=== PATIENT | female | born 1940 | race Caucasian/White ===

== ENCOUNTER 2019-07-08 06:31 | Outpatient (REF) | payer MEDICARE, MEDICAID, SELFPAY ==
[2019-07-08 09:39] LABS: Estmated Average Glucose 111; Hemoglobin A1C 5.5 % (4.0-6.0)
[2019-07-08 11:35] LABS: Cholesterol 317 mg/dL (0-200); Glucose 91 mg/dL (65-115); HDL Cholesterol 48 mg/dL (60-100); Triglycerides 486 mg/dL (0-150)
[2019-07-08 12:06] LABS: LDL Cholesterol Direct 200 mg/dL (0-100)
== END 2019-07-08 06:32 | disposition home or self-care (01) ==
LOC: LAB 06:31
PROVIDERS: Family Provider Internal Medicine; Visit Provider Dermatology
DX: Z01.89 Encounter for other specified special examinations (principal)
CPT/HCPCS: 80061; 82947; 83036; 83721

== ENCOUNTER 2019-12-13 12:34 | Outpatient (CLI) | payer MEDICARE, MEDICAID, SELFPAY ==
--- NOTE | 2019-12-13 12:50 | MM_ITS ---
WS: [id number] BILATERAL DIGITAL SCREENING MAMMOGRAPHY WITH CAD CLINICAL INFORMATION: SCREEN HISTORY: Screening mammogram. No current complaints. COMPARISON: October 05, 2018 TECHNIQUE: Bilateral CC and MLO views. FINDINGS: Scattered fibroglandular densities bilaterally. No suspicious focal mass, asymmetry, calcifications, or architectural distortion. No evidence of malignancy. Stable calcification left breast. MM/[place] [id number] IMPRESSION: BI-RADS: 2-Benign FOLLOW UP: 1 Year Follow-up Recommend return to annual screening mammography.
== END 2019-12-13 12:35 | disposition home or self-care (01) ==
LOC: RADSHAW 12:45
PROVIDERS: PCP Internal Medicine; Visit Provider Internal Medicine
DX: Z12.31 Encounter for screening mammogram for malignant neoplasm of breast (principal)
CPT/HCPCS: 77067

== ENCOUNTER 2020-09-10 14:04 | Outpatient (CLI) | payer MEDICARE, MEDICAID, SELFPAY ==
--- NOTE | 2020-09-10 14:21 | XR_ITS ---
WS: [id number] SCREENING DEXA SCAN [employer] CLINICAL INFORMATION: POSTMENOPAUSAL COMPARISON: None. FINDINGS: The L1-L4 bone mineral density measures 0.935 g/cm2. This corresponds to a T score score of -2.0 and Z score of 0.3. Left femoral neck bone mineral density measures 0.551 g/cm2. This corresponds to a T score of -3.6 an d Z score of -1.4. Right femoral neck bone mineral density measures 0.464 g/cm2. This corresponds to a T score -4.3of an d Z score of -2.1. Mean femoral neck bone mineral density measures 0.507 g/cm2. This corresponds to a T score of -4.0 an d Z score of -1.7. XR/XR DEXA axial skeleton* [id number] IMPRESSION: Osteoporosis Patient's FRAX calculated 10 year probability for major osteoporotic fracture i s 46.9 % and osteoporotic hip fracture is 26.1%.
== END 2020-09-10 14:05 | disposition home or self-care (01) ==
PROVIDERS: PCP Internal Medicine; Visit Provider Internal Medicine
DX: Z78.0 Asymptomatic menopausal state (principal); M81.0 Age-related osteoporosis without current pathological fracture
CPT/HCPCS: 77080

== ENCOUNTER → 2023-02-21 10:16 | Outpatient (BNVA) | payer MEDICARE, MEDICAID, SELFPAY | PROVIDERS: PCP Internal Medicine | DX: M25.522 Pain in left elbow (principal) | CPT/HCPCS: 73070 ==

== ENCOUNTER 2023-06-24 12:50 | Outpatient (CLI) | payer MEDICARE, MEDICAID, SELFPAY ==
--- NOTE | 2023-06-24 12:57 | XR_ITS ---
WS: [id number] SCREENING DEXA SCAN [employer] [employer] acquired by [employer] CLINICAL INFORMATION: OSTEOPOROSIS COMPARISON: 09/10/2020 FINDINGS: Lumbar scoliosis. The L1-L4 bone mineral density measures 0.931 g/cm2. This corresponds to a T score score of -2.1 and Z score of 0.4. Left femoral neck bone mineral density measures 0.523 g/cm2. This corresponds to a T score of -3.8 an d Z score of -1.4. Right femoral neck bone mineral density measures 0.485 g/cm2. This corresponds to a T score -4.1of an d Z score of -1.7. Mean femoral neck bone mineral density measures 0.504 g/cm2. This corresponds to a T score of -4.0 an d Z score of -1.5. IMPRESSION: Osteopenia lumbar spine. Osteoporosis femoral necks. Patient's FRAX calculated 10 year probability for major osteoporotic fracture is 66.5% and osteoporot ic hip fracture is 57.1%. Bone mineral density lumbar spine decreased -0.4% Bone mineral density femoral necks decreased -0.6%
== END 2023-06-24 12:51 | disposition home or self-care (01) ==
PROVIDERS: PCP Internal Medicine; Visit Provider Physician Assistant
DX: Z13.820 Encounter for screening for osteoporosis (principal); M81.0 Age-related osteoporosis without current pathological fracture; M85.88 Other specified disorders of bone density and structure, other site
CPT/HCPCS: 77080

== ENCOUNTER 2025-05-18 13:45 | Oncology outpatient (recurring) (ONCR) | payer MEDICARE, MEDICAID, SELFPAY ==
[2025-05-18 13:48] VITALS: BP 162/71; PULSE 94; RESP 17; TEMP 36.3; O2SAT 95
[2025-05-18] MEDS: denosumab-bbdz 60 MG Syringe SUBCUT (13:58)
== END 2025-05-31 23:59 | disposition home or self-care (01) ==
PROVIDERS: PCP Physician Assistant; Visit Provider Physician Assistant
DX: Z53.9 Procedure and treatment not carried out, unspecified reason (principal); M81.0 Age-related osteoporosis without current pathological fracture; Z79.899 Other long term (current) drug therapy
CPT/HCPCS: 96372; Q5136